=== PATIENT | female | born 1965 | race Caucasian/White ===

== ENCOUNTER 2020-01-12 15:16 | Emergency (ER) | payer BC, SELFPAY ==
--- NOTE | ~2020-01-12 | XR_ITS ---
EXAMINATION: XR chest 2V EXAM DATE: 01/12/2020 16:43 INDICATION: History palpitations. TECHNIQUE: Frontal and lateral projections of the chest obtained and reviewed. There is no prior gissel dy for comparison. FINDINGS: There is mild hyperinflation. The lungs are clear. There are no pleural effusions. The c ardiomediastinal silhouette is within normal limits. There is no pneumothorax suspected. The bones and soft tissues are unremarkable. IMPRESSION: No acute cardiopulmonary findings. Reviewed, dictated and finalized at location B. ICAL ABSTRACTOR
--- NOTE | 2020-01-12 15:36 | ED.ARRPALP ---
HPI - Arrhythmia/Palpitations General Chief Complaint: Arrhythmia/Palpitations Stated Complaint: HEART PALPITATIONS Time Seen by Provider: 01/12/20 15:35 Source: patient and RN notes reviewed Mode of arrival: EMS Limitations: no limitations History of Present Illness HPI narrative: A 54 y/o female presents to the ED via EMS with palpitations and her heart racing beginning earlier today while she was walking her dog. She states that this the third episode she has had this month but that they typically resolved after an hour, so when it didn't resolved she decided to come to the ED. She reports associated SOB, chest tightness, nausea, a mild sore throat, and feeling anxious. She notes that she had a similar episode last year and that she wore a halter monitor but that it never caught anything, so she was never placed on any medication. Per nurse, EMS notes that they did a vasal vagal maneuver en route and the pt converted from 160 to 86. She denies any recent increase in stress or caffeine. She denies any vomiting, leg edema, rhinorrhea, cough, fevers, chills, or dizziness. MD complaint: heart racing and palpitations Onset (ago): hour(s) Duration: constant (for the past couple hours but intermittent for the past month) Context: other (while walking her dog) Associated symptoms: chest pain (tightness), nausea, anxiety and other (SOB) Treatments prior to arrival: vagal maneuvers Related Data Allergies Allergy/AdvReac Type Severity Reaction Status Date / Time No Known Allergies Allergy Mild Verified 01/12/20 16:00 Review of Systems Review of Systems: All systems reviewed & are unremarkable except as noted in HPI and below Constitutional: Constitutional: Denies chills and Denies fever(s) ENT: Denies nasal discharge Cardiovascular: Cardiovascular: Reports chest pain (tightness), Denies leg edema and Reports palpitations Respiratory: Respiratory: Denies cough and Reports dyspnea Gastrointestinal: Gastrointestinal: Reports nausea and Denies vomiting Neurologic: Denies dizziness Psychiatric: Psychiatric: Reports anxiety PMFSH Past Medical History Medical History Healthy female Surgical History Surgical History No history of previous surgery Social History Social History Smoking status: Unknown if ever smoked Alcohol intake: current Gender identity (if verbalized by the patient): Female Exam Narrative: Exam Narrative: GENERAL: Anxious-appearing, well-nourished, and in no acute distress. HEAD: Normocephalic, atraumatic. ENT: Mucous membranes moist. CHEST: Clear to auscultation. No respiratory distress. HEART: Tachycardic and irregular regular. No murmur. Normal peripheral pulses. ABDOMEN: Soft, nontender, nondistended. EXTREMITIES: Normal range of motion. No edema. SKIN: Warm, dry, no rash. NEURO: No focal deficits. Alert and oriented x3. PSYCH: Mildly anxious about clinical condition but normal thought content. Course Course Emergency Course: Patient informed of treatment plan. Metoprolol 25 mg twice daily as well as a baby aspirin daily. Gave return precautions. Chads 2 score of 0. Patient converted with Cardizem 10 mg. Consultations Consultation #1: Discussed case with Dr Veras (Cardiology). Suggests starting the pt on metoprolol BID and a baby Aspirin. Date: 01/12/20 Time: 16:51 Vital Signs Vital signs: Vital Signs Pulse Rate 160 H 01/12/20 15:43 Respiratory Rate 18 01/12/20 15:43 Blood Pressure 156/88 H 01/12/20 15:43 Pulse Oximetry 98 01/12/20 15:43 Pulse Rate 83 01/12/20 17:14 Respiratory Rate 14 01/12/20 17:14 Blood Pressure 125/89 01/12/20 17:14 Pulse Oximetry 98 01/12/20 17:14 MDM - Arrhythmia/Palpitations Lab Data Result diagrams: 01/12/20 15:56 01/12/20 15:56 Labs: Lab Results 01/12/20 02
[2020-01-12 15:43] VITALS: BP 156/88; PULSE 160; RESP 18; O2SAT 98
--- NOTE | 2020-01-12 15:52 | ECG_ITS ---
Measurements Intervals [place] Rate: 153 P: LA: 0 QRS: 58 QRSD: 86 T: 256 QT: 301 QTc: 481 Interpretive Statements ATRIAL FIBRILLATION WITH RAPID VENTRICULAR RESPONSE VOLTAGE CRITERIA FOR LVH ST-T WAVE ABNORMALITY IN INF/LAT LEADS- CONSIDER ISCHEMIA BASELINE ARTIFACT- I, III, AVR, AVL, AVF ABNORMAL ECG Electronically Signed On 01-12-2020 16:42:34 PRIMARY CARE PEDIATRICIAN by Andre Schultz D.O.
[2020-01-12 16:03] LABS: Basophils Percent Auto 0.7 % (0.2-1.2); Eosinophils Percent Auto 0.9 % (0-4.4); Hematocrit 44.7 % (37.0-47.0); Hemoglobin 14.7 g/dL (12.0-15.0); Immature Granulocyte Absolute 0.01 K/mm3 (0.00-0.031); Immature Granulocyte Percent A 0.2 % (0-0.5); Lymphocytes Absolute Auto 1.57 K/mm3 (0.9-3.2); Lymphocytes Percent Auto 34.5 % (18.3-44.2); Mean Corpuscular HGB Conc 32.9 g/dl (32-36); Mean Corpuscular Hemoglobin 31.7 pg (26-34); Mean Corpuscular Volume 96.5 fl (80-100); Mean Platelet Volume 9.9 fl (7.4-10.4); Monocytes Absolute Auto 0.4 K/mm3 (0.1-0.6); Monocytes Percent Auto 8.4 % (2.6-8.5); Neutrophils Absolute Auto 2.5 K/mm3 (1.3-6.7); Neutrophils Percent Auto 55.3 % (45.5-73.1); Platelet Count Result 253 k/mm3 (150-375); Red Blood Count 4.63 M/mm3 (4.2-5.4); Red Cell Distribution Width 11.9 % (11.5-14.5); White Blood Count 4.6 K/mm3 (4.5-10.0)
[2020-01-12 16:12] LABS: INR 0.9; Partial Thromboplastin Time 25.5 SECONDS (22.3-36.8); Prothrombin Time 11.7 Seconds (11.1-14.7)
[2020-01-12 16:14] LABS: Blood Urea Nitrogen 9 mg/dL (7-17); Calcium 9.9 mg/dL (8.4-10.2); Carbon Dioxide 25 mmol/L (22-30); Chloride 103 mmol/L (98-107); Estimated CRCL calculation 76 ml/min; Estimated Glomerular Filt Rate > 60; Glucose 96 mg/dL (65-105); Potassium 3.9 mmol/L (3.4-5.0); Sodium 143 mmol/L (137-145)
[2020-01-12 16:26] LABS: Troponin I < 0.012 ng/mL (0.000-0.034)
--- NOTE | 2020-01-12 16:49 | ECG_ITS ---
Measurements Intervals [place] Rate: 82 P: 76 KS: 170 QRS: 63 QRSD: 85 T: 60 QT: 375 QTc: 440 Interpretive Statements SINUS RHYTHM WITH SINUS ARRHYTHMIA VOLTAGE CRITERIA FOR LVH BASELINE ARTIFACT- I, III, AVL BORDERLINE ECG Electronically Signed On 01-13-2020 6:55:34 NETWORK SUPPORT SPECIALIST by Andre Schultz D.O.
[2020-01-12 17:14] VITALS: BP 125/89; PULSE 83; RESP 14; O2SAT 98
== END 2020-01-12 17:15 | disposition home or self-care (01) ==
PROVIDERS: Emergency Provider Emergency Medicine
DX: I48.91 Unspecified atrial fibrillation (principal)
CPT/HCPCS: 36415; 71046; 80048; 84484; 85025; 85610; 85730; 93005; 96374; 99284

== ENCOUNTER → 2021-02-10 11:42 | Outpatient (CLI) | payer BC, SELFPAY ==
--- NOTE | ~2021-02-10 | MM_ITS ---
EXAMINATION: MM screening emerald BI w mckenzie HISTORY: Screening mammogram TECHNIQUE: Craniocaudal and mediolateral oblique 3-D tomosynthesis images were obtained and synthetic 2-D images were generated. CAD analysis was submitted and interpreted. COMPARISON: 12/07/2019, 10/29/2018, 09/13/2017 bilateral digital screening mammogram examinations BREAST PARENCHYMAL COMPOSITION: The breasts are heterogeneously dense, which may obscure small masses . FINDINGS: There is no evidence of suspicious mass, calcification, or architectural distortion to sugg est malignancy in either breast. There has been no suspicious interval change. IMPRESSION: 1. No mammographic evidence of malignancy. 2. Recommend routine screening mammography in one year. BI-RADS Category 1: Negative Reviewed, dictated and finalized at location A.
== END ==
PROVIDERS: Visit Provider Obstetrics & Gynecology
DX: Z12.31 Encounter for screening mammogram for malignant neoplasm of breast (principal)
CPT/HCPCS: 77063; 77067

== ENCOUNTER → 2022-04-11 13:45 | Outpatient (CLI) | payer BC, SELFPAY ==
--- NOTE | ~2022-04-11 | MM_ITS ---
EXAMINATION: MM screening emerald BI w mckenzie HISTORY: Screening mammogram TECHNIQUE: Craniocaudal and mediolateral oblique 3-D tomosynthesis images were obtained and synthetic 2-D images were generated. CAD analysis was submitted and interpreted. COMPARISON: 02/10/2021, 11/20/2019, 10/29/2018 bilateral screening mammogram examinations BREAST PARENCHYMAL COMPOSITION: The breasts are heterogeneously dense, which may obscure small masses . FINDINGS: Stable mild fibroglandular asymmetry. Minimal benign calcification. There is no evidence of suspicious mass, calcification, or architectural distortion to suggest malignancy in either breast. There has been no suspicious interval change. IMPRESSION: 1. No mammographic evidence of malignancy. 2. Recommend routine screening mammography in one year. BI-RADS Category 2: Benign finding(s). Reviewed, dictated and finalized at location A.
== END ==
PROVIDERS: PCP Internal Medicine; Visit Provider Obstetrics & Gynecology
DX: Z12.31 Encounter for screening mammogram for malignant neoplasm of breast (principal)
CPT/HCPCS: 77063; 77067

== ENCOUNTER → 2023-04-16 07:15 | Outpatient (CLI) | payer BC, SELFPAY ==
--- NOTE | ~2023-04-16 | MM_ITS ---
EXAMINATION: MM screening emerald BI w mckenzie HISTORY: Screening mammogram TECHNIQUE: Craniocaudal and mediolateral oblique 3-D tomosynthesis images were obtained and synthetic 2-D images were generated. CAD analysis was submitted and interpreted. COMPARISON: 04/11/2022, 02/10/2021, 11/20/2019 bilateral screening mammogram examinations BREAST PARENCHYMAL COMPOSITION: The breasts are heterogeneously dense, which may obscure small masses . FINDINGS: Possible 5 mm circumscribed opacity is suggested at mid depth in the mid to upper outer rig ht breast on right MLO Tomosynthesis views (MLO Tomosynthesis image 7/39), but not clearly confirmed on craniocaudal view. Diagnostic right mammogram is recommended, with ultrasound if required.. Otherwise there is no evidence of suspicious mass, calcification, or architectural distortion to sugg est malignancy in either breast. There has been no other suspicious interval change. IMPRESSION: 1. Possible 5 mm mass, mid to upper outer right breast 2. Diagnostic right mammogram and right breast ultrasound examination are recommended BI-RADS Category 0: Incomplete: Needs additional imaging evaluation. Reviewed, dictated and finalized at location A. IMPRESSION: 1. Possible 5 mm mass, mid to upper outer right breast 2. Diagnostic right mammogram and right breast ultrasound examination are recom mended BI-RADS Category 0: Incomplete: Needs additional imaging evaluation.
== END ==
PROVIDERS: PCP Obstetrics & Gynecology; Visit Provider Obstetrics & Gynecology
DX: Z12.31 Encounter for screening mammogram for malignant neoplasm of breast (principal); R92.8 Other abnormal and inconclusive findings on diagnostic imaging of breast
CPT/HCPCS: 77063; 77067

== ENCOUNTER → 2023-05-14 08:19 | Outpatient (CLI) | payer BC, SELFPAY ==
--- NOTE | ~2023-05-14 | MMUS_ITS ---
EXAMINATION: MM diagnostic emerald RT w mckenzie, US breast RT complete HISTORY: Possible 5 mm mass at mid to upper outer right breast on 04/16/2023 screening mammogram TECHNIQUE: Additional 3-D tomosynthesis images of the right breast were performed and synthetic 2-D i mages were generated. CAD analysis was submitted and interpreted. High resolution complete right breanne st ultrasound examination including all 4 quadrants and subareolar area was performed. COMPARISON: 04/16/2023 bilateral screening mammogram FINDINGS: MAMMOGRAPHIC FINDINGS: No suspicious mass, architectural distortion, malignant calcification, skin thickening or retraction is evident. ULTRASOUND: 4:00 subareolar area: 2 x 2.3 mm circumscribed sonolucency, likely a small cyst 10:00 5 cm from nipple: 2.7 x 3.4 x 4.5 mm circumscribed parallel sonolucency with through transmissi on posterior enhancement, likely a small cyst No suspicious mass or shadowing is detected. IMPRESSION: 1. No mammographic evidence of malignancy 2. Routine mammographic screening is recommended. BI-RADS Category 2: Benign finding(s). Reviewed, dictated and finalized at location A. IMPRESSION: 1. No mammographic evidence of malignancy 2. Routine mammographic screening is recommended. BI-RADS Category 2: Benign finding(s).
== END ==
PROVIDERS: PCP Obstetrics & Gynecology; Visit Provider Obstetrics & Gynecology
DX: R92.8 Other abnormal and inconclusive findings on diagnostic imaging of breast (principal)
CPT/HCPCS: 76641; 77061; 77065; G0279

== ENCOUNTER 2024-07-10 11:25 | Outpatient (CLI) | payer BC, SELFPAY ==
--- NOTE | ~2024-07-10 | MM_ITS ---
EXAMINATION: MM screening emerald BI w mckenzie HISTORY: Screening TECHNIQUE: Craniocaudal and mediolateral oblique 3-D tomosynthesis images were obtained and synthetic 2-D images were generated. CAD analysis was submitted and interpreted. COMPARISON: Comparison to multiple prior studies sequentially, with oldest reviewed study dated 10/18. BREAST PARENCHYMAL COMPOSITION: Dense: The breasts are extremely dense, which lowers the sensitivity of mammography. FINDINGS: There is no evidence of suspicious mass, calcification, or architectural distortion to sugg est malignancy in either breast. There has been no suspicious interval change. IMPRESSION: 1. No mammographic evidence of malignancy. 2. Recommend routine screening mammography in one year. BI-RADS Category 1: Negative Reviewed, dictated and finalized at location B.
== END 2024-07-10 11:26 ==
LOC: MICIMG 11:26
PROVIDERS: PCP Internal Medicine; Visit Provider Obstetrics & Gynecology
DX: Z12.31 Encounter for screening mammogram for malignant neoplasm of breast (principal)
CPT/HCPCS: 77063; 77067